=== PATIENT | female | born 1990 | race Caucasian/White ===

== ENCOUNTER 2023-01-02 06:55 | Emergency (ER) | payer MEDICAID, OTHER ==
[~2023-01-02] VITALS: Ht 162.6 cm; Wt 74.0 kg
[2023-01-02 06:57] VITALS: BP 145/90
== END 2023-01-02 07:34 | disposition home or self-care (01) ==
LOC: ER 07:00
DX: Z13.9 Encounter for screening, unspecified (principal)
CPT/HCPCS: 99283